=== PATIENT | female | born 1995 | race African-American/Black ===

== ENCOUNTER 2019-02-27 10:42 | Emergency (ER) | payer BC ==
[~2019-02-27] VITALS: Ht 162.6 cm; Wt 63.5 kg
[2019-02-27 10:46] VITALS: BP 142/68
[2019-02-27] MEDS ORDERED: DEPO-PROVE150 MG/11 IM (10:48)
[2019-02-27] MEDS ORDERED: MOBIC7.5 MG PO (11:00)
== END 2019-02-27 11:14 | disposition home or self-care (01) ==
LOC: ER 10:42
DX: S09.90XA Unspecified injury of head, initial encounter (principal); M25.511 Pain in right shoulder; W22.03XA Walked into furniture, initial encounter; Y93.89 Activity, other specified; Y92.89 Other specified places as the place of occurrence of the external cause; Y99.8 Other external cause status